=== PATIENT | male | born 1985 | race Caucasian/White ===

== ENCOUNTER 2020-05-18 21:37 | Emergency (ER) | payer OTHER ==
[2020-05-18 21:50] VITALS: BP 122/77; PULSE 88; TEMP 97.2; BMI 25.3
[2020-05-18] MEDS ORDERED: LIDOCAINE VISCOUS 2% ORAL/TOP 20 ML UNIT-DOSE CUP MM ONE ×2 (22:01→22:12)
--- NOTE | 2020-05-18 22:58 | PDOC ---
History of Present Illness - General Chief Complaint: Foreign Body (FB) Stated Complaint: FOREIGN BODY Time Seen by Provider: 05/18/20 21:52 History Source: Patient Exam Limitations: No Limitations - History of Present Illness Initial Comments: 05/18/20 22:54 Patient is a 34-year-old male with no past medical history here with complaint of "I have a fish bone stuck in my throat" since 9:30 PM patient states he was eating fish when he felt the bone in the right side. He has eaten bread with no relief of symptoms. States minimal pain 5/10. In the ER patient is tolerating his saliva. No nausea, vomiting. PMD: Dr. Quintero PMHX: neg PSOCHX: neg etoh, neg drug, neg cig ALL: NKDA GENERAL/CONSTITUTIONAL: [No fever or chills. No weakness. No weight change.] HEAD, EYES, EARS, NOSE AND THROAT: [No change in vision. No ear pain or discharge. (+) sore throat.] CARDIOVASCULAR: [No chest pain or shortness of breath.] RESPIRATORY: [No cough, wheezing, or hemoptysis.] GASTROINTESTINAL: [No nausea, vomiting, diarrhea or constipation. No rectal bleeding.] GENITOURINARY: [No dysuria, frequency, or change in urination.] MUSCULOSKELETAL: [No joint or muscle swelling or pain. No neck or back pain.] SKIN AND BREASTS: [No rash or easy bruising.] NEUROLOGIC: [No headache, vertigo, loss of consciousness, or loss of sensation.] PSYCHIATRIC: [No depression or anxiety.] ENDOCRINE: [No increased thirst. No abnormal weight change.] HEMATOLOGIC/LYMPHATIC: [No anemia, easy bleeding, or history of blood clots.] ALLERGIC/IMMUNOLOGIC: [No hives or skin allergy. No latex allergy.] GENERAL: [The patient is awake, alert, and fully oriented, in no acute distress.] HEAD: [Normal with no signs of trauma.] EYES: [Pupils equal, round and reactive to light, extraocular movements intact, sclera anicteric, conjunctiva clear.] ENT: [Ears normal, nares patent, oropharynx clear without exudates, no foreign body identified. Moist mucous membranes.] NECK: [Normal range of motion, supple without lymphadenopathy, JVD, or masses.] LUNGS: [Breath sounds equal, clear to auscultation bilaterally. No wheezes, and no crackles.] HEART: [Regular rate and rhythm, normal S1 and S2 without murmur, rub.] ABDOMEN: [Soft, nontender, normoactive bowel sounds. No guarding, no rebound. No masses.] EXTREMITIES: [Normal range of motion, no edema. No clubbing or cyanosis. No cords, erythema, or tenderness.] NEUROLOGICAL: [Cranial nerves II through XII grossly intact. Normal speech, normal gait.] PSYCH: [Normal mood, normal affect.] SKIN: [Warm, Dry, normal turgor, no rashes or lesions noted.] Past History - Medical History Allergies/Adverse Reactions: Allergies Allergy/AdvReac Type Severity Reaction Status Date / Time No Known Allergies Allergy Verified 05/18/20 22:17 COPD: No - Psycho-Social/Smoking History Smoking History: Never smoked - Substance Abuse Hx (Audit-C & DAST Scrn) How often the patient has a drink containing alcohol: Monthly or less Score: In Men: 4 or > Positive; In Women: 3 or > Positive: 1 Screen Result (Pos requires Nsg. Audit-10AR): Negative *Physical Exam - Vital Signs Last Vital Signs Temp Pulse Resp BP Pulse Ox 97.2 F L 88 20 122/77 100 05/18/20 21:41 05/18/20 21:41 05/18/20 21:41 05/18/20 21:41 05/18/20 21:41 ED Treatment Course - RADIOLOGY Radiology Studies Ordered: Category Date Time Status NECK SOFT TISSUE [RAD] Stat Radiology 05/18/20 22:01 Taken - Medications Given in the ED: ED Medications Discontinued Medications Generic Name Dose Route Start Last Admin Trade Name Freq PRN Reason Stop Dose Admin Lidocaine HCl 20 ml 05/18/20 22:01 05/18/20 22:15 Xylocaine 2% Viscous Oral - MM 05/18/20 22:02 Not Given ONCE ONE Lidocaine HCl 15 ml 05/18/20 22:12 05/18/20 22:15 Xylocaine 2% Viscous Oral - MM 05/18/20 22:13 15 ml ONCE ONE Administration Medical Decision Making - Medical Decision Making 05/18/20 22:54 Patient is a 34-year-old male with no past medical history here with complaint of "I have a fish bone stuck in my throat" since 9:30 PM patient states he was eating fish when he felt the bone in the right side. He has eaten bread with no relief of symptoms. States minimal pain 5/10. Symptoms consistent with esophageal injury secondary to foreign body. Soft tissue neck x-ray Viscous Lidocaine. Reassess 05/18/20 23:[address] Hdz Discharge - Discharge Information Problems reviewed: Yes Clinical Impression/Diagnosis: Foreign body sensation in throat Condition: Stable - Follow up/Referral Referrals: Azalia Ames MD [Primary Care Provider] - - Patient Discharge Instructions - Post Discharge Activity
--- NOTE | 2020-05-19 01:00 | PDOC ---
*Physical Exam - Vital Signs Last Vital Signs Temp Pulse Resp BP Pulse Ox 97.2 F L 88 20 122/77 100 05/18/20 21:41 05/18/20 21:41 05/18/20 21:41 05/18/20 21:41 05/18/20 21:41 ED Treatment Course - Medications Given in the ED: ED Medications Discontinued Medications Generic Name Dose Route Start Last Admin Trade Name Lolis PRN Reason Stop Dose Admin Lidocaine HCl 20 ml 05/18/20 22:01 05/18/20 22:15 Xylocaine 2% Viscous Oral - MM 05/18/20 22:02 Not Given ONCE ONE Lidocaine HCl 15 ml 05/18/20 22:12 05/18/20 22:15 Xylocaine 2% Viscous Oral - MM 05/18/20 22:13 15 ml ONCE ONE Administration Medical Decision Making - Medical Decision Making 05/19/20 01:00 Patient Name: JOZEF KIMBLE THIS IS A PRELIMINARY REPORT DATE OF SERVICE: 2020-05-19 00:03:15 IMAGES: [id number] EXAM: SOFT TISSUE NECK CT W/O CONTR HISTORY: Swallowed a fishbone COMPARISON: None. FINDINGS: The visualized intracranial and intraorbital contents are normal. The visualized paranasal sinuses and mastoid air cells are well aerated. No radiopaque foreign bodies Normal epiglottis and vocal cords. There is no parapharyngeal or retropharyngeal space edema. The salivary glands and thyroid glands are normal. There is no mass, suspicious adenopathy or abnormal fluid collection. The lung apices are clear. The bones are normal. IMPRESSION: No foreign bodies or other abnormalities identified. 05/19/20 01:13 Pt signed out to us; FB sensation; no FB seen. Pt is feeling better and he is stable for d/c home Discharge - Discharge Information Problems reviewed: Yes Clinical Impression/Diagnosis: Foreign body sensation in throat Condition: Improved Disposition: HOME - Follow up/Referral Referrals: Azalia Ames MD [Primary Care Provider] - - Patient Discharge Instructions Patient Printed Discharge Instructions: DI for Removal of Foreign Body From Esophagus Additional Instructions: You must return to the Emergency Department with any new complaints, if your symptoms persist and do not improve or if you develop any other new or worsening concerns. You can take over the counter Tylenol or Advil as needed for pain. Take as directed on the package insert. Do not exceed the recommended dosage. As discussed, please call to follow up with your Primary Care physician in 1-2 days to discuss what happened to you in the emergency room, and make sure you are being looked after and taken care of. Your emergency room visit is not complete without this follow up appointment. Please read the attached handouts for further information about your ER visit and what you should do moving forward. Thank you for coming to the [facility]. We hope you feel better soon! Print Language: LUX[place] - Post Discharge Activity
--- NOTE | 2020-05-19 01:03 | PDOC ---
*Physical Exam - Vital Signs Last Vital Signs Temp Pulse Resp BP Pulse Ox 97.2 F L 88 20 122/77 100 05/18/20 21:41 05/18/20 21:41 05/18/20 21:41 05/18/20 21:41 05/18/20 21:41 ED Treatment Course - RADIOLOGY Radiology Studies Ordered: Category Date Time Status SOFT TISSUE NECK CT W/O CONTR [CT] Stat CT Scan 05/19/20 00:01 Taken - Medications Given in the ED: ED Medications Discontinued Medications Generic Name Dose Route Start Last Admin Trade Name Lolis PRN Reason Stop Dose Admin Lidocaine HCl 20 ml 05/18/20 22:01 05/18/20 22:15 Xylocaine 2% Viscous Oral - MM 05/18/20 22:02 Not Given ONCE ONE Lidocaine HCl 15 ml 05/18/20 22:12 05/18/20 22:15 Xylocaine 2% Viscous Oral - MM 05/18/20 22:13 15 ml ONCE ONE Administration Medical Decision Making - Medical Decision Making 05/19/20 01:03 Patient signed out to me from [facility] rhoades pending CT soft tissue neck and DC if negative - CT negative - Re-assessment: Patient feeling better no longer in neck pain. Discharge - Discharge Information Problems reviewed: Yes Clinical Impression/Diagnosis: Foreign body sensation in throat Condition: Improved Disposition: HOME - Admission No - Follow up/Referral Referrals: Azalia Ames MD [Primary Care Provider] - - Patient Discharge Instructions Patient Printed Discharge Instructions: DI for Removal of Foreign Body From Esophagus Additional Instructions: You must return to the Emergency Department with any new complaints, if your symptoms persist and do not improve or if you develop any other new or worsening concerns. You can take over the counter Tylenol or Advil as needed for pain. Take as directed on the package insert. Do not exceed the recommended dosage. As discussed, please call to follow up with your Primary Care physician in 1-2 days to discuss what happened to you in the emergency room, and make sure you are being looked after and taken care of. Your emergency room visit is not complete without this follow up appointment. Please read the attached handouts for further information about your ER visit and what you should do moving forward. Thank you for coming to the [facility]. We hope you feel better soon! Print Language: PORTUGUESE - Post Discharge Activity
== END 2020-05-19 01:10 | disposition home or self-care (01) ==
LOC: JER 21:37
DX: R19.8 Other specified symptoms and signs involving the digestive system and abdomen (principal)
CPT/HCPCS: 70360-TC-FY; 70490-TC; 99284-25

== ENCOUNTER 2020-12-07 23:10 | Emergency (ER) | payer OTHER ==
[2020-12-07 23:31] VITALS: BP 104/65; PULSE 70; TEMP 98.3; BMI 27.7
[2020-12-07] MEDS ORDERED: ACETAMINOPHEN 325 MG TABLET (FP) PO ONE (23:51)
[2020-12-08] MEDS ORDERED: ACETAMINOPHEN 325 MG TABLET (FP) ONE (00:18)
[2020-12-08 00:35] LABS: BASO % 0.5 % (0-2.0); EOS % 2.9 % (0-4.5); HEMATOCRIT 41.9 % (35.4-49); HEMOGLOBIN 14.1 GM/dL (11.7-16.9); LYMPH % 30.9 % (8-40); MCH 30.8 pg (25.7-33.7); MCHC 33.6 g/dl (32.0-35.9); MEAN CELL VOLUME 91.7 fl (80-96); MEAN PLT VOLUME 7.5 fl (7.5-11.1); MONO % 8.8 % (3.8-10.2); NEUT % 56.9 % (42.8-82.8); PLATELET COUNT 223 K/MM3 (134-434); RBC 4.57 M/mm3 (4.00-5.60); RDW 13.6 % (11.9-15.9); WHITE BLOOD COUNT 4.5 K/mm3 (4.0-10.0)
[2020-12-08 00:52] LABS: CHLORIDE 106 mmol/L (98-107); SODIUM 137 mmol/L (136-145)
[2020-12-08 00:54] LABS: CALCIUM 8.8 mg/dL (8.5-10.1)
[2020-12-08 00:55] LABS: ALBUMIN 3.7 g/dl (3.4-5.0); BLOOD UREA NITROGEN 18.3 mg/dL (7-18); CO2 29 mmol/L (21-32); GLUCOSE,RANDOM 80 mg/dL (74-106); LIPASE 129 U/L (73-393)
[2020-12-08 00:58] LABS: SGOT/AST 66 U/L (15-37); SGPT/ALT 46 U/L (13-61)
[2020-12-08 00:59] LABS: BILIRUBIN,TOTAL 0.4 mg/dL (0.2-1)
[2020-12-08 01:00] LABS: TOT PROT 7.5 g/dl (6.4-8.2)
[2020-12-08 01:01] LABS: ALK PHOS 68 U/L (45-117)
[2020-12-08 01:06] LABS: ANION GAP 2 MMOL/L (8-16)
[2020-12-08 01:07] LABS: POTASSIUM 9.1 mmol/L (3.5-5.1)
[2020-12-08 01:41] LABS: URINE APPEARANCE CLEAR; URINE BILIRUBIN NEGATIVE (NEGATIVE); URINE COLOR YELLOW; URINE GLUCOSE (UA) NEGATIVE (NEGATIVE); URINE KETONE NEGATIVE (NEGATIVE); URINE LEUK ESTERASE NEGATIVE (NEGATIVE); URINE NITRITE NEGATIVE (NEGATIVE); URINE PROTEIN NEGATIVE (NEGATIVE)
[2020-12-08] MEDS ORDERED: IBUPROFEN 600 MG TABLET (FP) PO ONE ×2 (01:52)
[2020-12-08 03:00] LABS: POTASSIUM 4.2 mmol/L (3.5-5.1)
[2020-12-08 03:01] LABS: CALCIUM 8.9 mg/dL (8.5-10.1)
[2020-12-08 03:02] LABS: BLOOD UREA NITROGEN 20.2 mg/dL (7-18)
[2020-12-08] MEDS ORDERED: LIDOCAINE 5% TOPICAL PATCH TP ONE (03:17)
[2020-12-08] MEDS ORDERED: LIDOCAINE PATCH REMOVAL MC ONE (15:00)
== END 2020-12-08 03:32 | disposition home or self-care (01) ==
LOC: JER 23:10
DX: R10.9 Unspecified abdominal pain (principal)
CPT/HCPCS: 36415; 80048; 80053; 81003; 83690; 84484; 85025; 87086; 99284-25

== ENCOUNTER 2021-11-16 12:35 | Emergency (ER) | payer OTHER ==
[2021-11-16 12:50] VITALS: PULSE 63; TEMP 98.2; BMI 25.6
[2021-11-16 13:52] VITALS: BP 101/63
[2021-11-16] MEDS ORDERED: ACETAMINOPHEN 1000 MG/100 ML BAG IVPB ONE (14:09)
[2021-11-16] MEDS ORDERED: ACETAMINOPHEN INJECTION 100 ML IVPB ONE (14:11)
[2021-11-16 14:44] LABS: BASO % 0.5 % (0-2.0); HEMATOCRIT 40.4 % (35.4-49); HEMOGLOBIN 13.5 GM/dL (11.7-16.9); LYMPH % 16.2 % (8-40); MCHC 33.5 g/dl (32.0-35.9); MEAN CELL VOLUME 89.4 fl (80-96); MEAN PLT VOLUME 7.4 fl (7.5-11.1); MONO % 5.7 % (3.8-10.2); NEUT % 76.6 % (42.8-82.8); PLATELET COUNT 200 10^3/uL (134-434); RBC 4.52 M/mm3 (4.00-5.60); RDW 12.9 % (11.9-15.9); WHITE BLOOD COUNT 4.7 K/mm3 (4.0-10.0)
[2021-11-16 14:46] LABS: EPI CELLS 1 /uL (0-25.1); HYALINE CASTS 0 /uL (0-3.1); URINE APPEARANCE CLOUDY; URINE BACTERIA 5 /uL (0-1359); URINE BILIRUBIN NEGATIVE (NEGATIVE); URINE COLOR YELLOW; URINE GLUCOSE (UA) NEGATIVE (NEGATIVE); URINE KETONE TRACE (NEGATIVE); URINE LEUK ESTERASE NEGATIVE (NEGATIVE); URINE NITRITE NEGATIVE (NEGATIVE); URINE PROTEIN NEGATIVE (NEGATIVE); URINE RBC 1379 /uL (0-23.9); URINE UROBILINOGEN 0.2 mg/dL (0.2-1.0); URINE WBC 6 /uL (0-25.8)
[2021-11-16 15:02] LABS: CALCIUM 8.6 mg/dL (8.5-10.1)
[2021-11-16 15:03] LABS: ALBUMIN 3.9 g/dl (3.4-5.0); BLOOD UREA NITROGEN 17.3 mg/dL (7-18)
[2021-11-16 15:07] LABS: BILIRUBIN,TOTAL 0.5 mg/dL (0.2-1)
[2021-11-16] MEDS ORDERED: KETOROLAC TROMETHAMINE 15 MG/ML VIAL IVPUSH ONE (18:31)
[2021-11-16] MEDS ORDERED: KETOROLAC TROMETHAMINE 15 MG/ML VIAL ONE (18:34)
== END 2021-11-16 19:17 | disposition home or self-care (01) ==
LOC: JER 12:35
PROC: 3E0333Z Introduction of Anti-inflammatory into Peripheral Vein, Percutaneous Approach (ICD-10-PCS; principal; 2021-11-16)
PROC: 3E0333Z Introduction of Anti-inflammatory into Peripheral Vein, Percutaneous Approach (ICD-10-PCS; 2021-11-16)
DX: N20.0 Calculus of kidney (principal)
CPT/HCPCS: 36415; 74176-TC; 80053; 81003; 85025; 87086; 93005; 93010; 96374; 96375; 99285-25